=== PATIENT | female | born 1960 | race Caucasian/White ===

== ENCOUNTER 2021-02-04 14:16 | Outpatient (CLI) | payer OTHER, SELFPAY ==
--- NOTE | ~2021-02-04 | XR_ITS ---
XR chest 2V DATE: 02/04/2021 14:40 INDICATION: Chest pain, shortness of breath, allergies. Smoker. TECHNIQUE: PA and lateral views COMPARISON: 07/19/2019 2 view chest FINDINGS: Normal heart size. No hilar or mediastinal enlargement is evident since 07/19/2019. There a re chronic bilateral fibrotic changes. No active infiltrate or consolidation, pleural effusion or pul monary vascular congestion or pneumothorax is evident. Included skeletal structures are unremarkable. IMPRESSION: Chronic lung changes. No active disease or significant change since 07/19/2019 Reviewed, dictated and finalized at location B.
== END 2021-02-04 14:17 | disposition home or self-care (01) ==
LOC: CHSIMG 14:18
PROVIDERS: PCP Internal Medicine Geriatric Medicine; Visit Provider Internal Medicine Geriatric Medicine
DX: J44.9 Chronic obstructive pulmonary disease, unspecified (principal)
CPT/HCPCS: 71046

== ENCOUNTER 2022-01-04 09:08 | Emergency (ER) | payer OTHER, SELFPAY ==
[2022-01-04 09:10] VITALS: BP 101/74; PULSE 86; RESP 18; TEMP 36.3; O2SAT 86
--- NOTE | 2022-01-04 09:32 | ED.BACK ---
HPI - Back Pain/Injury General Chief Complaint: Back Pain/Injury Stated Complaint: low back pain Time Seen by Provider: 01/04/22 09:32 History of Present Illness HPI Narrative: 61-year-old female patient is here with complaints of low back pain that got exacerbated by doing some yard work over the weekend. Patient states that she has chronic lower back pain. She states that any excessive activity will aggravate it. Localizes the pain to the lower back area without any radiation into the buttocks or legs. She is denying any associated numbness or tingling down her legs. She denies bowel or bladder dysfunction. Related Data Home Medications Medication Instructions Recorded Confirmed alprazolam 0.5 mg tablet (Xanax) 0.5 mg PO TID PRN Anxiety 07/19/19 01/04/22 atorvastatin 10 mg tablet 10 mg PO DAILY 07/19/19 01/04/22 hydrocodone 10 mg-acetaminophen 1 tablet PO TID PRN Pain 07/19/19 01/04/22 325 mg tablet ([place]) triamterene 37.5 1 tablet PO QAM 07/19/19 01/04/22 mg-hydrochlorothiazide 25 mg tablet Allergies Allergy/AdvReac Type Severity Reaction Status Date / Time No Known Allergies Allergy Verified 01/04/22 09:23 Review of Systems Review of Systems: All systems reviewed & are unremarkable except as noted in HPI and below PMFSH Past Medical History Medical History Anxiety Back pain History of ectopic Hypertension Surgical History Surgical History History of bilateral ligation of fallopian tubes Social History Social History Smoking status: Current every day smoker Alcohol intake: never Substance use: never Exam Const: General: healthy appearing, no acute distress and alert Nutritional Appearance: well nourished Limitations: no limitations HENMT: Head: normal to inspection Eyes: Conjunctivae: conjunctivae normal Neck: Neck: normal visual inspection Chest: Chest palpation & inspection: normal inspection of the chest Resp: Effort & Inspection: normal respiratory effort Cardio: Rate: regular rate GI: GI Palp: Yes Soft to palpation and No Tenderness to palpation present (GI) Back/Spine/Pelvis: Back: no CVA tenderness Other: Patient has mild tenderness over the SI joints bilaterally as well as the para lumbar areas. Skin: General skin exam: normal color Rashes: no rashes Wounds: no wounds Neuro: General: patient oriented x3, moves all extremities, no meningeal signs, no focal motor deficits and CN's II-XI intact bilaterally Extrem: General: normal to inspection and no pedal edema Psych: Affect: normal affect Attitude: cooperative Course Course Emergency Course: Patient has been given a dose of ketorolac 60 mg IM. She states that that usually helps. I will also discharge her on a Medrol Dosepak. Patient is aware of the discharge plans. Discharge Plan Discharge Clinical Impression: Chronic back pain greater than 3 months duration, Acute bilateral low back pain Patient Disposition: Home, Self-Care Condition: Stable Instructions: Acute Low Back Pain (ED) Additional Instructions: home to rest continue all your routine medications follow-up with your primary care provider as needed avoid any excessive lifting or bending. Medication as prescribed Prescriptions: New methylprednisolone [Medrol (Saul)] 4 mg tablets,dose pack 4 mg PO DAILY Qty: 21 0RF No Action atorvastatin 10 mg Tablet 10 mg PO DAILY Label Comments: Does not know dose hydrocodone-acetaminophen [[place]] 10-325 mg Tablet 1 tablet PO TID PRN (Reason: Pain) alprazolam [Xanax] 0.5 mg Tablet 0.5 mg PO TID PRN (Reason: Anxiety) triamterene-hydrochlorothiazid 37.5-25 mg Tablet 1 tablet PO QAM albuterol sulfate 90 mcg/actuation HFA aerosol inhaler 2 puff INHALATION Q4H PRN (Reason
[2022-01-04] MEDS: KETOROLAC (*BKC) 60 MG/2 ML VIAL IM (09:41)
[2022-01-04 09:57] VITALS: BP 122/88; PULSE 81; RESP 16; O2SAT 97
== END 2022-01-04 10:00 | disposition home or self-care (01) ==
PROVIDERS: Emergency Provider Emergency Medicine; PCP Internal Medicine Geriatric Medicine
DX: M54.50 Low back pain, unspecified (principal)
CPT/HCPCS: 96372; 99283; J1885

== ENCOUNTER 2023-01-28 16:40 | Emergency (ER) | payer OTHER, SELFPAY ==
[2023-01-28 16:46] VITALS: BP 108/94; PULSE 87; RESP 16; TEMP 36.7; O2SAT 96
--- NOTE | 2023-01-28 16:59 | ED.EYEPROB ---
HPI - Eye Problem General Chief complaint: Eye Problems Stated complaint: Put wrong drops in eyes/contact Time Seen by Provider: 01/28/23 17:00 Source: patient and RN notes reviewed Mode of arrival: ambulatory Limitations: no limitations History of Present Illness HPI Narrative: 63-year-old female presents with concern for irritation, redness to her left eye. Reports just prior to arrival she accidentally used a contact shoe cleaner that contain peroxide directly into her eye, she thought it was saline. She reports she put 1 drop in the eye. Reports she immediately rinsed it, tried to take her contact out, she is concerned her contact is still in her eye. She reports slightly blurry vision, clear discharge. MD chief complaint: eye pain Related Data Home Medications Medication Instructions Recorded Confirmed alprazolam 0.5 mg tablet (Xanax) 0.5 mg PO TID PRN Anxiety 07/19/19 01/28/23 triamterene 37.5 1 tablet PO TID 07/19/19 01/28/23 mg-hydrochlorothiazide 25 mg tablet atorvastatin 80 mg tablet 40 mg PO DAILY 01/28/23 01/28/23 ergocalciferol (vitamin D2) 1,250 1,250 mcg PO WEEKLY 01/28/23 01/28/23 mcg (50,000 unit) capsule hydrocodone 10 mg-acetaminophen 1 tablet PO TID PRN Pain (Scale 01/28/23 01/28/23 325 mg tablet Score 7-10) tizanidine 4 mg tablet 4 mg PO TID PRN Spasms 01/28/23 01/28/23 Allergies Allergy/AdvReac Type Severity Reaction Status Date / Time No Known Allergies Allergy Verified 01/28/23 17:01 Review of Systems Review of Systems: CONSTITUTIONAL: Denies malaise, chills, sweats, or fever. EYES: Denies foot blurry vision in the left eye. Reports redness, irritation, clear discharge. ENT: Denies rhinorrhea, congestion, sinus pain, otalgia or sore throat. SKIN: Denies rash or itching. NEUROLOGIC: Denies numbness, weakness, or headache. PSYCHIATRIC: Denies anxiety or depression. All systems reviewed & are unremarkable except as noted in HPI and below PMFSH Past Medical History Medical History Anxiety Back pain History of ectopic Hypertension Surgical History Surgical History History of bilateral ligation of fallopian tubes Social History Social History Smoking status: Current every day smoker Alcohol intake: never Substance use: never Living arrangements: with family Comments At time of signature, agree with nursing past medical, surgical, social and family history. There is no relevant family history pertinent to the presenting complaint Exam Narrative: GENERAL: Well-appearing, well-nourished, and in no acute distress. HEAD: Normocephalic, atraumatic. EYES: PERRLA, right sclera clear, and EOMI. No nystagmus. Left conjunctivae clear with some conjunctival and scleral edema, right upper and lower eyelid mildly edematous. No foreign body or contact lens noted upon Wood's lamp exam, no abrasion noted upon Wood's lamp exam, see note. No periorbital edema noted ENT: Nares clear, turbinates pink, no rhinorrhea or epistaxis. Mucous membranes moist. TM pearly zaidi with sharp light reflex bilaterally; no tragal tenderness. NECK: Supple. CHEST: No respiratory distress. Speaks in full sentences. HEART: Regular rate and rhythm. SKIN: Warm, dry, no visible rash. NEURO: Alert and oriented x3. PSYCH: Normal mood and affect Course Course Emergency Course: Patient is aware of diagnosis, understands and agrees to treatment plan. Anticipatory guidance given. Patient agrees to follow-up as directed and is aware of reasons to seek care at the emergency department. Portions of this record may have been created with voice recognition software Level of Care: Express Care Visit Vital Signs Vital signs: Vital Signs Temperature 98.1 F 01/28/23 16:46 Pulse Rate 87 01/28/23 16:46 Respiratory Rate 16
== END 2023-01-28 17:22 | disposition home or self-care (01) ==
PROVIDERS: Emergency Provider Nurse Practitioner
DX: S05.92XA Unspecified injury of left eye and orbit, initial encounter (principal); X58.XXXA Exposure to other specified factors, initial encounter; F41.9 Anxiety disorder, unspecified; I10 Essential (primary) hypertension; F17.200 Nicotine dependence, unspecified, uncomplicated
CPT/HCPCS: 99213; A9270; G0463

== ENCOUNTER 2023-02-12 16:43 | Emergency (ER) | payer OTHER, SELFPAY ==
[2023-02-12 16:51] VITALS: BP 103/74; PULSE 82; RESP 16; TEMP 36.7; O2SAT 98
--- NOTE | 2023-02-12 17:05 | ED.GENADULT ---
HPI - General Adult General Chief complaint: Extremity Injury, Lower Stated complaint: Swelling of Feet/Legs Time Seen by Provider: 02/12/23 17:06 Source: patient, family, RN notes reviewed and old records reviewed Mode of arrival: ambulatory Limitations: no limitations History of Present Illness HPI narrative: 63 year old female presents to [facility] accompanied by spouse with complaints of swelling to her lower legs and feet which started last evening with painful walking. Patient reports that she has been told by her doctor that she has some kind of nodules in her legs which causes this swelling and has been treated with steroids in the past which usually helps. Patient denies any tingling or numbness to her legs or feet, pedal pulses palpable of adequate quality, swelling noted to lower legs and feet patient reports that they feel tight, no pitting edema noted. Patient is poor historian. MD complaint: swelling of feet and legs painful walking. Onset (ago): day(s) (day 2 of symptoms) Location: left, right and lower extremity Severity scale (1-10): 9 Quality: aching Treatments prior to arrival: other (pain medication and muscle relaxers) Related Data Home Medications Medication Instructions Recorded Confirmed alprazolam 0.5 mg tablet (Xanax) 0.5 mg PO TID PRN Anxiety 07/19/19 01/28/23 triamterene 37.5 1 tablet PO TID 07/19/19 01/28/23 mg-hydrochlorothiazide 25 mg tablet atorvastatin 80 mg tablet 40 mg PO DAILY 01/28/23 01/28/23 ergocalciferol (vitamin D2) 1,250 1,250 mcg PO WEEKLY 01/28/23 01/28/23 mcg (50,000 unit) capsule hydrocodone 10 mg-acetaminophen 1 tablet PO TID PRN Pain (Scale 01/28/23 01/28/23 325 mg tablet Score 7-10) tizanidine 4 mg tablet 4 mg PO TID PRN Spasms 01/28/23 01/28/23 Allergies Allergy/AdvReac Type Severity Reaction Status Date / Time No Known Allergies Allergy Verified 01/28/23 17:01 Review of Systems Review of Systems: CONSTITUTIONAL: Denies fever, chills, or sweats. EYES: Denies visual changes, redness, or discharge. ENT: Denies rhinorrhea, congestion, sore throat, or otalgia. CARDIOVASCULAR: Denies chest pain, palpitations, positive for edema lower legs and feet non-pitting, reports they feel tight RESPIRATORY: Denies cough or dyspnea. GASTROINTESTINAL: Denies abdominal pain, nausea, vomiting, or diarrhea. GENITOURINARY: Denies dysuria or hematuria. SKIN: Denies rash or itching. MUSCULOSKELETAL: Chronic back pain, chronic right shoulder pain or myalgia. NEUROLOGIC: Denies headache, numbness, or weakness. PSYCHIATRIC: Denies anxiety or depression. All systems reviewed & are unremarkable except as noted in HPI and below PMFSH Past Medical History Medical History Anxiety Back pain Bronchitis Elevated cholesterol History of ectopic Hypertension Surgical History Surgical History History of bilateral ligation of fallopian tubes Social History Social History Smoking status: Current every day smoker Alcohol intake: never Substance use: never Living arrangements: with family Comments At time of signature, agree with nursing past medical, surgical, social and family history. There is no relevant family history pertinent to the presenting complaint Exam Narrative: GENERAL: Well-appearing, well-nourished, and in no acute distress. HEAD: Normocephalic, atraumatic. EYES: PERRLA and EOMI. ENT: Nares clear, no rhinorrhea or epistaxis. Mucous membranes moist.TM's normal with good light reflex throat pink with no swelling noted NECK: Supple.no lymphadenopathy CHEST: Clear to auscultation. No respiratory distress.Palpable peripheral pulses ABDOMEN: Soft, nontender, nondistended, normal active bowel sounds. EXTREMITIES: Normal range of motion.bilateral lower leg edema and into her feet nonpitting
== END 2023-02-12 17:27 | disposition home or self-care (01) ==
PROVIDERS: Emergency Provider Registered Nurse
DX: R22.43 Localized swelling, mass and lump, lower limb, bilateral (principal); F17.200 Nicotine dependence, unspecified, uncomplicated; E78.00 Pure hypercholesterolemia, unspecified; I10 Essential (primary) hypertension; F41.9 Anxiety disorder, unspecified
CPT/HCPCS: 99213; G0463

== ENCOUNTER 2023-11-03 14:03 | Emergency (ER) | payer OTHER, SELFPAY ==
[2023-11-03 14:16] VITALS: BP 138/75; PULSE 94; RESP 20; TEMP 36.9; O2SAT 100
--- NOTE | 2023-11-03 14:37 | ED.GENADULT ---
HPI - General Adult General Chief complaint: Extremity Problem,Nontraumatic Stated complaint: nodules on legs Source: patient, RN notes reviewed and old records reviewed Mode of arrival: ambulatory Limitations: no limitations History of Present Illness HPI narrative: 63-year-old female presents to [facility] with complaints of bilateral leg pain. Patient states this is a chronic condition. Patient states get nodular in legs and has be treated with prednisone. Patient states occurred about 5 times in her life has been at least 6 months since last steroids. Related Data Home Medications Medication Instructions Recorded Confirmed alprazolam 0.5 mg tablet (Xanax) 0.5 mg PO TID PRN Anxiety 07/19/19 11/03/23 triamterene 37.5 1 tablet PO TID 07/19/19 11/03/23 mg-hydrochlorothiazide 25 mg tablet atorvastatin 80 mg tablet 40 mg PO DAILY 01/28/23 11/03/23 ergocalciferol (vitamin D2) 1,250 1,250 mcg PO WEEKLY 01/28/23 11/03/23 mcg (50,000 unit) capsule hydrocodone 10 mg-acetaminophen 1 tablet PO TID PRN Pain (Scale 01/28/23 11/03/23 325 mg tablet Score 7-10) tizanidine 4 mg tablet 4 mg PO TID PRN Spasms 01/28/23 11/03/23 Allergies Allergy/AdvReac Type Severity Reaction Status Date / Time No Known Allergies Allergy Verified 11/03/23 14:18 Review of Systems Constitutional: Constitutional: Reports no additional constitutional complaints, Denies body ache(s), Denies chills, Denies fatigue, Denies fever(s) and Denies headache(s) Eyes: Eyes: Reports no additional eye complaints and Denies blurry vision ENT: Reports system reviewed and no additional complaints, except as documented, Denies vertigo, Denies dizziness, Denies ear discharge, Denies otalgia, Denies facial pain, Denies headache(s), Denies nasal congestion, Denies nasal discharge, Denies sinus pain, Denies sinus pressure and Denies sore throat Cardiovascular: Cardiovascular: Reports no additional cardiovascular complaints, Denies chest pain, Denies chest pain at rest, Denies rapid heart rate and Denies dyspnea Respiratory: Respiratory: Reports no additional respiratory complaints, Denies chest congestion, Denies cough, Denies pain on inspiration, Denies pain with cough and Denies dyspnea Gastrointestinal: Gastrointestinal: Denies abdominal pain, Denies diarrhea, Denies nausea and Denies vomiting Musculoskeletal: Musculoskeletal: Reports as per HPI Comments: Bilateral lower leg pain Integumentary/Breasts: Skin/Breast: Denies rash Neurologic: Reports system reviewed and no additional complaints, except as documented, Denies vertigo, Denies dizziness and Denies headache(s) Endocrine: Endocrine: Denies fatigue PMFSH Past Medical History Medical History Anxiety Back pain Bronchitis Elevated cholesterol History of ectopic Hypertension Surgical History Surgical History History of bilateral ligation of fallopian tubes Social History Social History Smoking status: Current every day smoker Alcohol intake: never Substance use: never Living arrangements: with family Comments At the time of my signature, I reviewed and agree with the nursing past medical, surgical, social, and family history. There is no relevant family history pertinent to the patient complaint. Exam Const: General: cooperative, healthy appearing, no acute distress and well nourished Nutritional Appearance: well nourished Orientation/consciousness: patient oriented x3 Limitations: no limitations HENMT: Head: normal to inspection and normocephalic Ears: external ears normal, TM's normal bilaterally, mastoids normal and Abnormal EAC present Face/Nose/Sinus: normal facial exam Face and sinus: normal facial exam Mouth: Yes Normal oral and palatal mucosa present, Yes oropharynx normal and Yes moist m
== END 2023-11-03 14:40 | disposition home or self-care (01) ==
PROVIDERS: Emergency Provider Registered Nurse
DX: G89.29 Other chronic pain (principal); M79.605 Pain in left leg; M79.604 Pain in right leg; E78.00 Pure hypercholesterolemia, unspecified; I10 Essential (primary) hypertension; F41.9 Anxiety disorder, unspecified; F17.200 Nicotine dependence, unspecified, uncomplicated
CPT/HCPCS: 99213; G0463

== ENCOUNTER 2023-11-09 17:24 | Emergency (ER) | payer OTHER, SELFPAY ==
[2023-11-09 17:29] VITALS: BP 118/101; PULSE 104; RESP 20; TEMP 36.6; O2SAT 97
[2023-11-09 17:40] VITALS: BP 118/101; PULSE 104; RESP 20; TEMP 36.6; O2SAT 97
--- NOTE | 2023-11-09 17:48 | ED.URI ---
HPI - URI/Sore Throat General Chief Complaint: Upper Respiratory Infection Stated Complaint: Abdominal Pain Time Seen by Provider: 11/09/23 17:48 Source: patient and RN notes reviewed Mode of arrival: ambulatory Limitations: no limitations History of Present Illness HPI Narrative: 63-year-old female who was a poor historian presents with complaints of cough with copious clear nasal drainage that started today. She also briefly talks about chronic nodules on her legs that are painful for which she was recently treated. She denies fever. Reports shortness of breath. Reports she has been using her albuterol inhaler and antihistamines, she last used reviewed oral inhaler after arrival to the urgent care. MD elicited complaint: cough Related Data Home Medications Medication Instructions Recorded Confirmed alprazolam 0.5 mg tablet (Xanax) 0.5 mg PO TID PRN Anxiety 07/19/19 11/09/23 triamterene 37.5 1 tablet PO TID 07/19/19 11/09/23 mg-hydrochlorothiazide 25 mg tablet atorvastatin 80 mg tablet 40 mg PO DAILY 01/28/23 11/09/23 ergocalciferol (vitamin D2) 1,250 1,250 mcg PO WEEKLY 01/28/23 11/09/23 mcg (50,000 unit) capsule hydrocodone 10 mg-acetaminophen 1 tablet PO TID PRN Pain (Scale 01/28/23 11/09/23 325 mg tablet Score 7-10) tizanidine 4 mg tablet 4 mg PO TID PRN Spasms 01/28/23 11/09/23 Allergies Allergy/AdvReac Type Severity Reaction Status Date / Time No Known Allergies Allergy Verified 11/09/23 17:29 Review of Systems Review of Systems: CONSTITUTIONAL: Denies malaise, chills, sweats, or fever. EYES: Denies visual changes, redness, or discharge. ENT: Reports rhinorrhea, congestion CARDIOVASCULAR: Denies chest pain, palpitations, or edema. RESPIRATORY: Reports cough, dyspnea. GASTROINTESTINAL: Denies abdominal pain, nausea, vomiting, diarrhea SKIN: Denies rash or itching. MUSCULOSKELETAL: Denies myalgia. NEUROLOGIC: Denies headache. All systems reviewed & are unremarkable except as noted in HPI and below PMFSH Past Medical History Medical History Anxiety Back pain Bronchitis Elevated cholesterol History of ectopic Hypertension Surgical History Surgical History History of bilateral ligation of fallopian tubes Social History Social History Smoking status: Current every day smoker Alcohol intake: never Substance use: never Living arrangements: with family Comments At time of signature, agree with nursing past medical, surgical, social and family history. There is no relevant family history pertinent to the presenting complaint Exam Narrative: GENERAL: Well-appearing, well-nourished, and in no acute distress. HEAD: Normocephalic EYES: PERRLA, conjunctivae clear ENT: Nares clear, clear discharge. Mucous membranes moist. TM pearly zaidi with sharp light reflex bilaterally; no tragal tenderness. Oropharynx not erythematous without lesions. Tonsils not enlarged and without exudate, no drooling, no hoarseness, no trismus, uvula midline. NECK: Supple. No lymphadenopathy CHEST: Inspiratory and expiratory wheeze throughout with scattered rhonchi, aeration fair,, breath sounds equal. No rales, or stridor. No respiratory distress, speaks in full sentences. HEART: Regular rate and rhythm. No murmur heard. SKIN: Warm, dry, no rash. NEURO: Alert and oriented x3. PSYCH: Normal mood and affect Course Course Emergency Course: I advised patient to follow-up with her primary care provider regarding her chronic problem with nodules, I will focus this visit on her respiratory problem which is more pressing. Patient is aware of diagnosis, understands and agrees to treatment plan. Anticipatory guidance given. Patient agrees to follow-up as directed and is aware of reasons to seek care at the emergency department. Portions
[2023-11-09] MEDS: ALBUTEROL SULFATE NEB 2.5 MG/3 ML INH INHALATION (17:58)
[2023-11-09] MEDS: IPRATROPIUM BR 0.02% INH SOLN 0.5 MG/2.5 ML VIAL INHALATION (17:59)
== END 2023-11-09 18:25 | disposition home or self-care (01) ==
PROVIDERS: Emergency Provider Nurse Practitioner
DX: J45.901 Unspecified asthma with (acute) exacerbation (principal); E78.00 Pure hypercholesterolemia, unspecified; I10 Essential (primary) hypertension; F41.9 Anxiety disorder, unspecified; F17.200 Nicotine dependence, unspecified, uncomplicated
CPT/HCPCS: 94640; 99213; G0463